=== PATIENT | female | born 1985 | race Hispanic/Latino ===

== ENCOUNTER 2016-12-12 10:47 | Inpatient (IN) | payer BC, OTHER ==
[2016-12-12 11:38] VITALS: BMI 25.4
[2016-12-12] MEDS: Lactated Ringer's 1,000 ML IV SCH ×2 (11:45→20:11)
[2016-12-12] MEDS ORDERED: Oxytocin 30 units/LR 500ML 30 U/500 ML BAG IV ONE ×2 (12:37→12:45)
[2016-12-12 12:57] LABS: BASO % 0.2 % (0.0-2.0); EOS # 0.1 K/uL (0.0-0.7); EOS % 0.5 % (0.0-4.0); HEMOGLOBIN 12.9 g/dL (12.0-16.0); LYMPH # 1.9 K/uL (1.0-4.3); LYMPH % 17.9 % (20.0-40.0); MEAN CELL VOLUME 88.4 fl (81.0-99.0); MEAN CORPUSCULAR HEMOGLOBIN 29.2 pg (27.0-31.0); MEAN CORPUSCULAR HGB CONC 33.1 g/dL (33.0-37.0); MEAN PLATELET VOLUME 11.2 fl (7.2-11.7); MONO # 0.7 K/uL (0.0-0.8); MONO % 7.1 % (0.0-10.0); NEUT # 7.8 K/uL (1.8-7.0); NEUT % 74.3 % (50.0-75.0); NRBC % 0.1 % (0.0-0.0); RBC 4.43 Mil/uL (3.80-5.20); WHITE BLOOD COUNT 10.5 K/uL (4.8-10.8)
[2016-12-12 14:05] VITALS: BP 114/72; PULSE 85; RESP 16; TEMP 98.8
--- NOTE | 2016-12-12 15:55 | OBHP ---
Datetime: 12/12/2016 15:50 IP Adm Impression: Term, intrauterine IP Admit Plan: Admit to unit Admit Comment, IP Provider: 31 y/o @ 38+ wks seen n office earlier today c/o ctx pain since this morning increasing intensity and frequency every 5 minutes 03/04. pt denes lof, vb, +FM OB X 2 FT uncompoicated GY: denies hx of abnormla pap, fibroids, ovairan cyst, STI PMH: scoliosis PSH: denies FHX non contribuotyr SHX: negativ x 3 MEDS: PNV A/P 31 y/o @ 38+ wks in active labor -admit to L+D -npo, ivf -admission labs -epidural prn -continur current manamgnet Pelvic Type - PN: Adequate Extremities - PN: Normal Abdomen - PN: Normal Back - PN: Normal Breast - PN: Not Done Lungs - PN: Normal Heart - PN: Normal Thyroid - PN: Normal Neurologic - PN: Normal HEENT - PN: Normal General - PN: Normal Weight - Estimated: 3200 Presentation-Admit: Vertex FHR - Baseline A Provider: 150 Membranes, Provider: Intact Contraction Comments Provider: q 5-7 min Gestation - Est Wks by US: 38.6 IP Hx Assessment: The History has been Reviewed and is Current EGA AdmitDate IP: 38.4 Vital Signs Provider: Reviewed; Within Normal Limits IP Chief Complaint: Uterine contractions NICHD Variability Prov Fetus A: Moderate 6-25bpm NICHD Accel Fetus A IP Provider: 15X15 NICHD Decel Fetus A IP Provider: None Dilatation, Provider: 4 Effacement, Provider: 50 Station, Provider: -2 Genitourinary Exam: Normal DTRs - PN: Normal
[2016-12-12] MEDS ORDERED: Fentanyl/Bupivacaine HCl 250 ML EPI ONE (18:09)
[2016-12-12] MEDS ORDERED: Bupivacaine HCl 0.25% PF (10 ml) Inj ONE (18:09)
--- NOTE | 2016-12-12 18:54 | OBPN ---
Datetime: 12/12/2016 18:50 IP Progress Impression: Normal progression of labor IP Informed Consent Obtain: Vaginal Delivery IP Procedures: Artificial ROM IP Progress Plan: Continue present management Membranes, Provider: Ruptured Amniotic Fluid Color, Provider: Clear Contraction Comments Provider: q 2 min FHR - Baseline A Provider: 150 Gestation - Est Wks by US: 38.4 Weight - Estimated: 3300 Presentation-Admit: Vertex IP Progress Note Comment: pt seen and examined, c/o of pain after from contraction s/ p epidural pt reexamined 6cm s/p AROM, clear fluid VS BP leel ated , repeat EF: Cat I TOCO: q 2 min A/P G3P@ @ 38+ wks in Active labor -cont current managmnet Vital Signs Provider: Reviewed NICHD Accel Fetus A IP Provider: 15X15 NICHD Variability Prov Fetus A: Moderate 6-25bpm Dilatation, Provider: 6 Effacement, Provider: 70 Station, Provider: -2 NICHD Decel Fetus A IP Provider: None
[2016-12-12] MEDS ORDERED: Lidocaine 1% Inj (20ml) ONE (19:15)
[2016-12-12] MEDS ORDERED: Benzocaine/Menthol SPRAY TOP PRN ×2 (19:19→20:20)
[2016-12-12] MEDS ORDERED: Oxycodone/Acetaminophen 5/325 mg Tab PO PRN ×4 (19:19→20:20)
--- NOTE | 2016-12-12 19:27 | OBPN ---
Datetime: 12/12/2016 19:24 IP Progress Impression: Normal progression of labor IP Informed Consent Obtain: Vaginal Delivery; Risks, Benefits and Alternatives Discussed IP Progress Plan: Continue present management; Anticipate Vaginal Delivery Membranes, Provider: Ruptured Contraction Comments Provider: 2-3 min FHR - Baseline A Provider: 150 Gestation - Est Wks by US: 38.4 Presentation-Admit: Vertex IP Progress Note Comment: pt seen and examiend c/o pressure s/p epidural vss ve 10/100/0 a/p @ 38+ wks in active laob, fully dilated -will start pushing -anticpate nsvsd -cont current mangmaent Vital Signs Provider: Reviewed; Within Normal Limits NICHD Variability Prov Fetus A: Moderate 6-25bpm Dilatation, Provider: 10 Effacement, Provider: 100 Station, Provider: 0 NICHD Decel Fetus A IP Provider: None
--- NOTE | 2016-12-12 19:48 | OBDS ---
MATERNAL INFORMATION Provider Comments: pt was fully dilated , pushing, atrumatic, spontaneous deliver of anterior follow ed by posterior shoulder followed by delivery body. both oral and nasal passages of the baby were bul b suctioned. umbilical cord was clamped and cut. baby was handed to mother on abdomen with rn shane gay. cord blood collected and sent x 2. Spontaneous dleivey rof intact placenta with membranes. Fun dus firm, good hemostasis. Intact perienum, no lacerations. good hemostaiss, no complications. Live male infnat agpars 9,9 weight of 6lbs 14 ounces ebl 250ml no complications LABOR SUMMARY EDC: 12/22/2016 00:00 No. Babies in Womb: 1 LABOR INFORMATION Group B Beta Strep: Negative MEMBRANES Membranes Rupture Method: Artificial Amniotic Fluid Color: Clear Amniotic Fluid Amount: Small Amniotic Fluid Odor: Normal VAGINAL DELIVERY Episiotomy: None Laceration Extension: N/A Laceration Type: None Laceration Repair Note: intact perinuem Count Comment: correct
[2016-12-13 06:59] LABS: HEMOGLOBIN 12.7 g/dL (12.0-16.0); MEAN CELL VOLUME 89.1 fl (81.0-99.0); MEAN CORPUSCULAR HEMOGLOBIN 29.4 pg (27.0-31.0); RBC 4.31 Mil/uL (3.80-5.20); RED CELL DISTRIBUTION WIDTH 13.7 % (11.5-14.5); WHITE BLOOD COUNT 14.5 K/uL (4.8-10.8)
[2016-12-13] MEDS: Multivitamin With Minerals Tab PO SCH (08:25)
[2016-12-13] MEDS ORDERED: Multivitamin With Minerals Tab PO SCH (09:00)
--- NOTE | 2016-12-13 09:44 | OBPPN ---
Datetime: 12/13/2016 09:41 PP Pain Prov: Within normal limits PP Nausea Prov: Denies PP Flatus Prov: Yes PP BM Prov: No PP Breasts Prov: Normal PP Heart Prov: Normal PP Lungs Prov: Normal PP Abdomen/Uterus Prov: Normal PP Lochia Prov: Normal PP Vulva/Perineum Prov: Normal PP CVA Tenderness Prov: Normal PP Extremities Prov: Normal PP C/S Incision Prov: Not Applicable PP Progress Prov: Normal PP Comments Phys Exam Prov: GEN NAD, AA ox 3 BREAST: NT, NOn engorbed b/l CVS RRR, +S1/S2 RESP: CTAB/l ABD: sfot, NT/ND Fuduns: Firm, at level of umbilsk, moderate lochia, non foul smelling EXT: negative homans sing, negative calf tendenress PP Impression Prov: Normal progression PP Plan Prov: Continue present management PP Progress Note Prov: pt seen and eamined report pain controlled with medciaitn. pt ambuating, void ing, breast feeding, denies heavy bleeding, denies fevrs, chills, nasue, vomitign, CP, SOB vss pe see above a/p s/p PPD #1 doing well -f/u am labs -aoin managmnet -ecnoaurg bresat feeding/ambaution IP PP Procedures: None Vital Signs Provider PP: Reviewed; Within Normal Limits
--- NOTE | 2016-12-14 07:46 | OBPPN ---
Datetime: 12/14/2016 07:43 PP Pain Prov: Within normal limits PP Nausea Prov: Denies PP Flatus Prov: Yes PP Breasts Prov: Normal PP Heart Prov: Normal PP Lungs Prov: Normal PP Abdomen/Uterus Prov: Normal PP Lochia Prov: Normal PP Vulva/Perineum Prov: Normal PP CVA Tenderness Prov: Normal PP Extremities Prov: Normal PP Impression Prov: Normal progression PP Plan Prov: Discharge PP Progress Note Prov: Pt seen and examined and reports not having pain. Pt ambuating, voiidng, pass ing flatus, bottle feeding, denies any fevers, chills, nasue, vomiting, CP, SOB. VSS PE: GEN NAD, AAOx 3 BREAST: NT, Non engorged b/l CVS RRR, +S1/S2 RESP: CTAB/l ABD: sfot, NT/ND Fuduns: Firm, below level of umbilcus, minimal lochia, non foul smelling EXT: negative homans sign, negative calf tendenress A/P s/p PPD #2 doing well, stable for discharge -d/c home -RTO 6 week -Precautions given IP PP Procedures: None
--- NOTE | 2016-12-14 07:48 | OBDCSUM ---
Datetime: 12/14/2016 07:45 Discharged to, Provider: Home Follow up at, Provider: Dr Lynne Disch Instr Activity: Normal activity Disch Instr Diet: Regular Discharge Instructions, Provider: Routine instructions given Discharge Diagnosis, Provider: Term Delivered Discharge Time: 12/14/2016 09:00 Follow up in weeks, Provider: 6 weeks Disch Referrals: None Contraception discussed, Prov: Yes Disch Activity Restrictions: No sexual activity; Nothing in vagina - [place], tampons, douche Discharge Comment, Provider: Nothing per vagina, no sex, no douching, no tamponx s 6 week Precautions given Contraception after Delivery: Not Planning to Use
[2016-12-14] MEDS: Multivitamin With Minerals Tab PO SCH (08:03)
== END 2016-12-14 10:20 | disposition home or self-care (01) | DRG 775 ==
LOC: H.EROB2 10:47 → H.L&D 11:40 → H.OB/GYN 23:08
PROVIDERS: ADMIT Obstetrics & Gynecology; ATTEND Obstetrics & Gynecology
PROC: 10E0XZZ Delivery of Products of Conception, External Approach (ICD-10-PCS; principal; 2016-12-12)
PROC: 10907ZC Drainage of Amniotic Fluid, Therapeutic from Products of Conception, Via Natural or Artificial Opening (ICD-10-PCS; 2016-12-12)
PROC: 4A1HXCZ Monitoring of Products of Conception, Cardiac Rate, External Approach (ICD-10-PCS; 2016-12-12)
DX: O75.89 Other specified complications of labor and delivery (principal); M41.9 Scoliosis, unspecified; Z37.0 Single live birth; Z3A.38 38 weeks gestation of pregnancy